=== PATIENT | female | born 1980 | race Caucasian/White ===

== ENCOUNTER 2016-11-29 21:22 | Inpatient (IN) | payer OTHER ==
[~2016-11-29] VITALS: Ht 162.6 cm; Wt 69.0 kg
[~2016-11-29 21:22] MED LIST: BENZ100 PO; CLIN1CAP5 PO; HYDR-3580 PO; PRED-503 PO
[2016-11-29 22:10] VITALS: BP 122/85; PULSE 75; RESP 16; TEMP 98.6; O2SAT 99
--- NOTE | 2016-11-29 23:23 | PD ---
HPI Chief Complaint: Psychiatric Symptoms Time Seen by Provider: 23:18 Travel History International Travel<30 days: No Contact w/Intl Traveler<30days: No Traveled to known affect area: No History of Present Illness HPI Patient is a 36-year-old female brought to the emergency Department under Garnett act. Patient reports that her is getting the dogs in her house to cover up things for him. Per the Garnett report patient's is concerned and believes she is having a psychotic break down, she's been off of her medications that she takes for mental illness. Patient admits to writing on her stomach and arms so that she doesn't forget what he's been doing. She states that she is in a "Fibro fog" secondary to her fibromyalgia. She reports that her Syrian lr talks to her. She claims that her has alienated her from her friends and family in [place]. She states that she doesn't work. She denies any physical complaints, she reports a history of anxiety, PTSD, fibromyalgia. PFSH Past Medical History Anxiety: Yes Diverticulitis: Yes Psychiatric: Yes (PTSD) : 2 Para: 0 Miscarriage: 0 : 2 Past Surgical History Other Surgery: Yes (RIGHT BREAST CYST) Social History Alcohol Use: No Tobacco Use: Yes (1/2 PACK DAILY) Substance Use: No Allergies-Medications (Allergen,Severity, Reaction): Coded Allergies: Latex (Verified Allergy, Severe, Rash, 04/19/16) Naproxen (Verified Allergy, Severe, hives, 11/15/14) Uncoded Allergies: tomatoes (Allergy, Mild, 12/31/07) Reported Meds & Prescriptions Reported Meds & Active Scripts Active Tessalon Perles (Benzonatate) 100 Mg Cap 100 Mg PO TID PRN Clindamycin (Clindamycin HCl) 150 Mg Cap 450 Mg PO Q6H 10 Days Deltasone (Prednisone) 20 Mg Tab 40 Mg PO DAILY 5 Days Reported Hydrocodone-Acetaminophen 7.5-325 mg Tab 1 Tab PO Q6H PRN Review of Systems Except as stated in HPI: all other systems reviewed are Neg Psychiatric: Positive: Anxiety, Disorder of Thought, Mood Disorder Physical Exam Narrative GENERAL: Thin, well-developed, alert female. SKIN: Focused skin assessment warm/dry. HEAD: Atraumatic. Normocephalic. EYES: Pupils equal and round. No scleral icterus. No injection or drainage. ENT: No nasal bleeding or discharge. Mucous membranes pink and moist. NECK: Trachea midline. No JVD. CARDIOVASCULAR: Regular rate and rhythm. No murmur appreciated. RESPIRATORY: No accessory muscle use. Clear to auscultation. Breath sounds equal bilaterally. GASTROINTESTINAL: Abdomen soft, non-tender, nondistended. Hepatic and splenic margins not palpable. MUSCULOSKELETAL: No obvious deformities. No clubbing. No cyanosis. No edema. NEUROLOGICAL: Awake and alert. No obvious cranial nerve deficits. Motor grossly within normal limits. Normal speech. PSYCHIATRIC: Appropriate mood and affect; insight and judgment impaired. Disordered thoughts, suspicious. Data Data Last Documented VS Vital Signs Date Time Temp Pulse Resp B/P Pulse Ox O2 Delivery O2 Flow Rate FiO2 11/29/16 22:10 98.6 75 16 122/85 99 Room Air Orders Complete Blood Count With Diff (11/29/16 23:17) Comprehensive Metabolic Panel (11/29/16 23:17) Urinalysis - C+S If Indicated (11/29/16 23:17) Ed Urine Pregnancytest Poc (11/29/16 23:17) Psych Screen (11/29/16 23:17) Drug Screen, Random Urine (11/29/16 23:17) Alcohol (Ethanol) (11/29/16 23:17) Salicylates (Aspirin) (11/29/16 23:17) Tylenol (Acetaminophen) (11/29/16 23:17) Potassium Chloride (Kcl) (11/30/16 01:15) Fluconazole (Diflucan) (11/30/16 01:15) Labs Laboratory Tests Test 11/29/16 11/30/16 23:30 00:50 White Blood Count 7.8 TH/MM3 Red Blood Count 4.16 MIL/MM3 Hemoglobin 12.8 GM/DL Hematocrit 38.0 % Mean Corpuscular Volume 91.3 FL Mean Corpuscular Hemoglobin 30.8 PG Mean Corpuscular Hemoglobin 33.8 % Concent Red Cell Distribution Width 13.7 % Platelet Count 209 TH/MM3 Mean Platelet Volume 8.7 FL Neutrophils (%) (Auto) 66.7 % Lymphocytes (%) (Auto) 24.1 % Monocytes (%) (Auto) 8.5 % Eosinophils (%) (Auto) 0.0 % Basophils (%) (Auto) 0.7 % Neutrophils # (Auto) 5.2 TH/MM3 Lymphocytes # (Auto) 1.9 TH/MM3 Monocytes # (Auto) 0.7 TH/MM3 Eosinophils # (Auto) 0.0 TH/MM3 Basophils # (Auto) 0.1 TH/MM3 CBC Comment DIFF FINAL Differential Comment Sodium Level 138 MEQ/L Potassium Level 3.1 MEQ/L Chloride Level 102 MEQ/L Carbon Dioxide Level 28.0 MEQ/L Anion Gap 8 MEQ/L Blood Urea Nitrogen 8 MG/DL Creatinine 0.67 MG/DL Estimat Glomerular Filtration 100 ML/MIN Rate Random Glucose 97 MG/DL Calcium Level 9.2 MG/DL Total Bilirubin 0.5 MG/DL Aspartate Amino Transf 38 U/L (AST/SGOT) Alanine Aminotransferase 32 U/L (ALT/SGPT) Alkaline Phosphatase 77 U/L Total Protein 7.7 GM/DL Albumin 4.5 GM/DL Salicylates Level 5.2 MG/DL Acetaminophen Level LESS THAN 2.0 MCG/ML Ethyl Alcohol Level LESS THAN 3 MG/DL Urine Color YELLOW Urine Turbidity CLEAR Urine pH 6.0 Urine Specific [place] 1.004 Urine Protein NEG mg/dL Urine Glucose (UA) NEG mg/dL Urine Ketones TRACE mg/dL Urine Occult Blood TRACE Urine Nitrite NEG Urine Bilirubin NEG Urine Urobilinogen LESS THAN 2.0 MG/DL Urine Leukocyte Esterase NEG Urine RBC 1 /hpf Urine WBC 1 /hpf Urine Squamous Epithelial 1 /hpf Cells Urine Renal Epithelial Cells <1 /hpf Urine Bacteria RARE /hpf Urine Mucus FEW /lpf Urine Yeast (Budding) RARE Microscopic Urinalysis Comment CULT NOT INDICATED Urine Opiates Screen NEG Urine Barbiturates Screen NEG Urine Amphetamines Screen NEG Urine Benzodiazepines Screen NEG Urine Cocaine Screen NEG Urine Cannabinoids Screen POS [facility] Medical Decision Making Medical Screen Exam Complete: Yes Emergency Medical Condition: Yes Interpretation(s) Laboratory Tests Test 11/29/16 11/30/16 23:30 00:50 White Blood Count 7.8 TH/MM3 Red Blood Count 4.16 MIL/MM3 Hemoglobin 12.8 GM/DL Hematocrit 38.0 % Mean Corpuscular Volume 91.3 FL Mean Corpuscular Hemoglobin 30.8 PG Mean Corpuscular Hemoglobin 33.8 % Concent Red Cell Distribution Width 13.7 % Platelet Count 209 TH/MM3 Mean Platelet Volume 8.7 FL Neutrophils (%) (Auto) 66.7 % Lymphocytes (%) (Auto) 24.1 % Monocytes (%) (Auto) 8.5 % Eosinophils (%) (Auto) 0.0 % Basophils (%) (Auto) 0.7 % Neutrophils # (Auto) 5.2 TH/MM3 Lymphocytes # (Auto) 1.9 TH/MM3 Monocytes # (Auto) 0.7 TH/MM3 Eosinophils # (Auto) 0.0 TH/MM3 Basophils # (Auto) 0.1 TH/MM3 CBC Comment DIFF FINAL Differential Comment Sodium Level 138 MEQ/L Potassium Level 3.1 MEQ/L Chloride Level 102 MEQ/L Carbon Dioxide Level 28.0 MEQ/L Anion Gap 8 MEQ/L Blood Urea Nitrogen 8 MG/DL Creatinine 0.67 MG/DL Estimat Glomerular Filtration 100 ML/MIN Rate Random Glucose 97 MG/DL Calcium Level 9.2 MG/DL Total Bilirubin 0.5 MG/DL Aspartate Amino Transf 38 U/L (AST/SGOT) Alanine Aminotransferase 32 U/L (ALT/SGPT) Alkaline Phosphatase 77 U/L Total Protein 7.7 GM/DL Albumin 4.5 GM/DL Salicylates Level 5.2 MG/DL Acetaminophen Level LESS THAN 2.0 MCG/ML Ethyl Alcohol Level LESS THAN 3 MG/DL Urine Color YELLOW Urine Turbidity CLEAR Urine pH 6.0 Urine Specific [place] 1.004 Urine Protein NEG mg/dL Urine Glucose (UA) NEG mg/dL Urine Ketones TRACE mg/dL Urine Occult Blood TRACE Urine Nitrite NEG Urine Bilirubin NEG Urine Urobilinogen LESS THAN 2.0 MG/DL Urine Leukocyte Esterase NEG Urine RBC 1 /hpf Urine WBC 1 /hpf Urine Squamous Epithelial 1 /hpf Cells Urine Renal Epithelial Cells <1 /hpf Urine Bacteria RARE /hpf Urine Mucus FEW /lpf Urine Yeast (Budding) RARE Microscopic Urinalysis Comment CULT NOT INDICATED Vital Signs Date Time Temp Pulse Resp B/P Pulse Ox O2 Delivery O2 Flow Rate FiO2 11/29/16 22:10 98.6 75 16 122/85 99 Room Air Differential Diagnosis Mood disorder versus substance abuse versus noncompliance versus UTI versus psychosis versus other Narrative Course Patient is a 36-year-old female presenting to the emergency Department under Garnett act. Mental health screening discussed with the patient. Psychiatric screen ordered. Patient's thoughts appear disorganized, she did not answer every question appropriately. She is alert and oriented and cooperative at this time. Her vital signs are stable. CBC is unremarkable, potassium is 3.1, oral replacement ordered. Salicylate, acetaminophen, alcohol reviewed and are unremarkable. Urinalysis had yeast, Diflucan by mouth 1 dose ordered. Urine drug screen is positive for marijuana. Patient is medically cleared for psychiatric evaluation. Diagnosis Primary Impression: Medical clearance for psychiatric admission Additional Impression: Hypokalemia Condition: Stable Tatyana oPlo Nov 29, 2016 23:23
[2016-11-29 23:47] LABS: AUTOMATED NEUTROPHIL # 5.2 TH/MM3 (1.8-7.7); BASOPHIL # 0.1 TH/MM3 (0-0.2); BASOPHIL % 0.7 % (0.0-2.0); HEMO FLAGS DIFF FINAL; LYMPH % 24.1 % (9.0-44.0); LYMPHOCYTE # 1.9 TH/MM3 (1.0-4.8); MEAN CELL VOLUME 91.3 FL (80.0-100.0); MEAN CORPUSCULAR HEMOGLOBIN 30.8 PG (27.0-34.0); MEAN CORPUSCULAR HGB CONC 33.8 % (32.0-36.0); MONO % 8.5 % (0.0-8.0); NEUT % 66.7 % (16.0-70.0); PLATELET COUNT 209 TH/MM3 (150-450); RED BLOOD COUNT 4.16 MIL/MM3 (4.00-5.30); RED CELL DISTRIBUTION WIDTH 13.7 % (11.6-17.2); WHITE BLOOD COUNT 7.8 TH/MM3 (4.0-11.0)
[2016-11-30 00:02] LABS: ANION GAP 8 MEQ/L (5-15); AST (GOT) 38 U/L (15-37); BLOOD UREA NITROGEN 8 MG/DL (7-18); CHLORIDE 102 MEQ/L (98-107); GLOMERULAR FILTRATION RATE 100 ML/MIN (>89); POTASSIUM 3.1 MEQ/L (3.5-5.1); SODIUM (NA) 138 MEQ/L (136-145)
[2016-11-30 00:05] LABS: ACETAMINOPHEN LESS THAN 2.0 MCG/ML (10.0-30.0); ALKALINE PHOSPHATASE 77 U/L (45-117); ALT (GPT) 32 U/L (10-53); TOTAL BILIRUBIN ADULT 0.5 MG/DL (0.2-1.0)
[2016-11-30 01:10] LABS: BACTERIA, URINE RARE /hpf; BLOOD, URINE TRACE (NEG); COMMENT (UR) CULT NOT INDICATED; CULTURE IF INDICATED CULT NOT INDICATED; GLUCOSE,URINE NEG (NEG); KETONE, URINE TRACE mg/dL (NEG); MUCUS URINE FEW /lpf (OCC); NITRITE,URINE NEG (NEG); RENAL EPITHELIAL CELLS <1 /hpf; SQUAMOUS EPITHELIAL CELL URINE 1 /hpf (0-5); URINE COLOR YELLOW (YELLW/STRAW)
[2016-11-30 01:13] LABS: AMPHETAMINE, URINE NEG (NEG); BARBITURATES, URINE NEG (NEG); COCAINE, URINE NEG (NEG)
[2016-11-30] MEDS ORDERED: POTASSIUM CHLORIDE 20 MEQ CONTROLLED RELEASE TAB PO ONE (01:15)
[2016-11-30] MEDS ORDERED: FLUCONAZOLE 100 MG TAB PO ONE (01:15)
[2016-11-30 02:16] VITALS: BP 136/67; PULSE 78; RESP 17; TEMP 98.3; O2SAT 100
[2016-11-30] MEDS ORDERED: ACETAMINOPHEN 325 MG TAB PO PRN ×2 (05:30→14:00)
[2016-11-30] MEDS ORDERED: LORazepam 1 MG TAB PO PRN (05:30)
[2016-11-30] MEDS ORDERED: MAGNESIUM HYDROXIDE SUSP 30 ML CUP PO PRN ×2 (05:30→14:00)
[2016-11-30] MEDS ORDERED: LORazepam 2 MG/ML VIAL IM PRN (05:30)
[2016-11-30] MEDS ORDERED: ALUMINUM/MAGNESIUM/SIMETH 30 ML CUP PO PRN ×2 (05:30→14:00)
[2016-11-30 06:11] VITALS: BP 132/64; PULSE 65; RESP 16; TEMP 98.2; O2SAT 100
[2016-11-30 06:41] VITALS: BP 159/73; PULSE 70; RESP 16; TEMP 98.4; O2SAT 100
[2016-11-30] MEDS ORDERED: OLANZapine IM 10 MG VIAL IM SCH (07:00)
[2016-11-30] MEDS: NICOTINE 21 MG/24 HR PATCH T-DERMAL SCH (09:00)
--- NOTE | 2016-11-30 12:55 | PD.PN.STU ---
Subjective Remarks Patient is a 36 y/o female with reported histoy of PTSD who presents to the unit per Garnett Act which states her believed she was having a psychotic break after "being off her medications for mental illness". Currently she has no complaints except anxiety over her dog who was reportedly attacked around the time the Garnett Act occurred. Patient reports that she was Garnett Acted after her life has been falling apart since her sister unexpectedly earlier this year, her recently suggesting a divorce, and her dog getting attacked. Her psychiatric history is significant for PTSD after watching her step father commit suicide when she was 8 years old. She admits to one psychiatric hospitalization when she was 15 years old due to an argument with her mother. Currently she denies any suicidal or homicidal ideation. She denies any auditory or visual hallucinations at this time. She is adamant about being discharged to check on her dog who is reportedly at the [facility] emergency room after suffering injuries from a neighbor's Lao Melendez. She has a past medical history of fibromyalgia and back pain. She admits to prior substance abuse of loratab and xanax for which she is currently on suboxone therapy. She reports self-weaning off the suboxone currently and "doesn 't need it anymore". She denies any current use of illicit drugs. She denies any family history of psychiatric conditions. Denies any alcohol use. Before admission she lived with her , but due to recent marital issues she does not know exactly where she will go after discharge. She say she might go to [place] with family. Objective Vitals Vital Signs Date Time Temp Pulse Resp B/P Pulse Ox O2 Delivery O2 Flow Rate FiO2 11/30/16 06:41 98.4 70 16 159/73 100 11/30/16 06:11 98.2 65 16 132/64 100 11/30/16 02:16 98.3 78 17 136/67 100 11/29/16 22:10 98.6 75 16 122/85 99 Room Air Result Diagram: 11/29/16 2330 11/29/[id number] Objective Remarks Patient is a calm and cooperative, thin female who appears older than stated age. Her speech is mildly disorganized but of normal rhythm. Mood is anxious, affect is of full range with diminished intensity. Her thought content is logical and her thought process is linear and goal-oriented. Her cognition and intellect are appropiate, her judgement/insight is poor. She recieved and ETO of Ativan and Zyprexa this morning around 0600, so current mental state might be affected by the medication. A/P Assessment and Plan 1) Adjustment Disorder 2) Substance Abuse Disorder - chronic Patient is a 36 y/o female who denies any past psychiatric history who presents to the unit per Garnett Act. She currently has no complaints and is calm and cooperative. I am skeptical about lack of psychiatric history. Urine tox screen is also positive for THC despite her denying any drug use. Will get in contact with to corroborate patient's history before deciding on a discharge plan. Ferdinand Dang M3 Nov 30, 2016 12:55
[2016-11-30] MEDS ORDERED: BENZONATATE 100 MG CAP PO PRN (14:00)
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
[2016-11-30] MEDS: CLINDAMYCIN 150 MG CAP PO SCH ×2 (15:00→21:15)
[2016-11-30 17:26] VITALS: BP 109/58; PULSE 64; RESP 16; TEMP 98.2; O2SAT 98
[2016-11-30] MEDS ORDERED: REMOVE OLD NICOTINE PATCH T-DERMAL SCH (21:00)
[2016-12-01] MEDS: CLINDAMYCIN 150 MG CAP PO SCH ×2 (03:12→08:45)
[2016-12-01 06:07] VITALS: BP 145/71; PULSE 65; RESP 18; TEMP 98.4; O2SAT 97
[2016-12-01] MEDS: NICOTINE 21 MG/24 HR PATCH T-DERMAL SCH (08:46)
[2016-12-01] MEDS ORDERED: predniSONE 20 MG TAB PO SCH (09:00)
[2016-12-01] MEDS ORDERED: ZYPR5TAB PO (09:20)
--- NOTE | 2016-12-01 09:25 | HHI.DS ---
Psychiatry Discharge Summary Inpatient Psychiatric care?: Yes Advance Directive: No Reason Not Provided: PER MEDICAL RECORD Mental Health AdvanceDirective: No Health Care Proxy: No Admission Admission Date Nov 30, 2016 at 05:18 Admission Diagnosis: (1) OTH PSYCH DISORDER NOT DUE TO A SUB OR KNOWN PHYSIOL COND ICD Code: F28 Brief History Patient is a 36-year-old white female comes here under Garnett act by the [place] dated 11/29/16 at 2015 hrs. this document reviewed and agreed with patient he stating patient has been suffering from anxiety believe she is having an emotional breakdown and might be a harm to herself present also stated that she might be having a psychotic break and could be a harm to herself she has not been taking her Ativan for her mental illness. Patient seen screened in the ED urine toxicology positive for marijuana. At the present time patient sitting is somewhat intense anxious states in her room nurse Leonila and medical student Melquiades present throughout session patient and is somewhat confusing distracted history about recent events. There have been also significant deaths in her family suicide of her father and number of years ago the of her sister in [place] less than a year ago the of an uncle with the past few weeks. 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 It appears this dog has subsequently of her injuries. Patient vague about past psychiatric history however review of EMR shows patient multiple visits here for multiple issues over a number of years. She does acknowledge regular use of marijuana. She does denies suicidality at the present time. She does acknowledge albeit somewhat obliquely of seeing and talking to her uncle recently. She does denies suicidality homicidality at the present time. Patient behavior necessitated ETO who Zyprexa earlier today that perhaps maybe contributing to her calm more cooperative demeanor. In any event at the present time patient does meet criteria for further assessment of the Garnett act I will do first opinion request second opinion we will request patient's to come and meet with us tomorrow morning to discuss further treatment medications and recommendations for this young woman Tobacco Use In Past 30 Days: No Tobacco Past 30 Days Alcohol Use: Monthly or Less Hospital Course Patient seen today with her Rich, counselor Nakul, medical student Melquiades. Patient had good night. Slept well. Now denies suicidality homicidality voices or visions. feels she is somewhat improved but is still concerned about her vigilance paranoia and difficulty acknowledging her behaviors. However patient is willing to continue compliance with the medication as an outpatient, willing to follow-up with mental health and counseling in the community. At the present time patient will order meets criteria for involuntary psychiatric hospitalization. Will lift the Garnett act. Patient be discharged to her Rx Zyprexa 5 mg #60 one twice a day, follow-upsaafe, also recommend absolute abstinence no alcohol no marijuana Results Blood Pressure 145 / 71 Vital Signs Date Time Temp Pulse Resp B/P Pulse Ox O2 Delivery O2 Flow Rate FiO2 12/01/16 06:07 98.4 65 18 145/71 97 11/29/16 22:10 Room Air Laboratory Tests Test 11/29/16 11/30/16 23:30 00:50 Monocytes (%) (Auto) 8.5 % (0.0-8.0) Potassium Level 3.1 MEQ/L (3.5-5.1) Aspartate Amino Transf 38 U/L (15-37) (AST/SGOT) Acetaminophen Level LESS THAN 2.0 MCG/ML (10.0-30.0) Urine Ketones TRACE mg/dL (NEG) Urine Occult Blood TRACE (NEG) Urine Bacteria RARE /hpf (NONE) Urine Mucus FEW /lpf (OCC) Urine Yeast (Budding) RARE (NONE) Urine Cannabinoids Screen POS (NEG) Summary of Procedures None done Pending results at discharge: No Medications # of Antipsychotic meds at D/C: 1 Approp Antipsych med options 1 - Minimum of three failed multiple trials of monotherapy. 2 - Documented plan to taper to monotherapy due to previous use of multiple meds OR cross-taper in progress at D/C. 3 - Documentation of augmentation of Clozapine. 4 - Justification other than those listed in allowable values 1-3, document here : Discharge Discharge Date: Dec 01, 2016 Discharge Diagnosis: (1) OTH PSYCH DISORDER NOT DUE TO A SUB OR KNOWN PHYSIOL COND Diagnosis: Principal ICD Code: F28 Mental Status Exam at Disch Alert oriented thin slender white female calm cooperative is somewhat guarded, she has normoactive, mood is euthymic with good range intensity of her affect, speech rate and rhythm are slightly increased she is mildly tangential, no auditory or visual hallucinations no delusions noted, insight and judgment is poor to fair cognition grossly intact Pt Condition on Discharge: Stable Discharge Disposition: Discharge Home Discharge Instructions Diet Instructions: As Tolerated, No Restrictions Activities you can perform: Regular-No Restrictions Scheduled Appointment: lux Discharge Time > 30 minutes Discharge/Advance Care Plan Health Problems: (1) OTH PSYCH DISORDER NOT DUE TO A SUB OR KNOWN PHYSIOL COND Goals to promote your health * To prevent worsening of your condition and complications * To maintain your health at the optimal level Directions to meet your goals Take your medications as prescribed Follow your dietary instruction Follow activity as directed Keep your appointments as scheduled Take your immunizations and boosters as scheduled If your symptoms worsen call your PCP, if no PCP go to Urgent Care Center or Emergency Room For 28/12 questions related to your inpatient stay or results of tests pending at discharge, please contact Dr. Madi Jhaveri at Smoking is Dangerous to Your Health. Avoid second hand smoking Madi Jhaveri MD Dec 01, 2016 09:25
[2016-12-01] MEDS ORDERED: OLANZapine 5 MG TAB PO STA (09:27)
[2016-12-01 09:45] LABS: HDL CHOLESTEROL 76.2 MG/DL (40.0-60.0); LDL CHOLESTEROL 85 MG/DL (0-99)
[2016-12-01 13:00] LABS: HEMOGLOBIN A1b 1.5 %; HEMOGLOBIN Ao 86.6 %; HEMOGLOBIN LA1C 1.8 %; HEMOGLOBIN P3 3.5 %
== END 2016-12-01 11:30 | disposition home or self-care (01) | DRG 885 ==
LOC: NEPD 21:22 → NEDA 11-30 05:18 → H260 11-30 06:20
PROVIDERS: ADMIT Psychiatry & Neurology Psychiatry; ATTEND Psychiatry & Neurology Psychiatry
DX: F28 Other psychotic disorder not due to a substance or known physiological condition (principal); E87.6 Hypokalemia; F12.90 Cannabis use, unspecified, uncomplicated; F43.10 Post-traumatic stress disorder, unspecified; M79.7 Fibromyalgia; F17.210 Nicotine dependence, cigarettes, uncomplicated; M19.90 Unspecified osteoarthritis, unspecified site
CPT/HCPCS: 80053; 80061; 80307; 81001; 83036; 84703; 85025; J7512